=== PATIENT | female | born 1945 | race Caucasian/White ===

== ENCOUNTER 2017-01-10 09:25 | Emergency (ER) | payer MEDICARE, OTHER ==
[2017-01-10] MEDS ORDERED: HYDROcodone/Acetaminophen 7.5/325 mg Tablet ONE ×2 (09:51→10:17)
--- NOTE | 2017-01-10 10:23 | RAD ---
RIGHT SHOULDER HISTORY: Fell on shoulder with injury and pain. FINDINGS: Three views obtained. There is a fracture of the distal clavicle with slight displacement. The AC joint remains normally aligned. There is widening of the subacromial space, which indicates subluxation of the humeral head, in rela tion to the glenoid. IMPRESSION: 1. Fracture, distal clavicle. 2. Subluxation of the humeral head, in relation to the glenoid, with increase in the subacromial sp zoe. POS: H
--- NOTE | 2017-01-10 11:07 | CT ---
CT BRAIN WITHOUT CONTRAST: HISTORY: Fall. COMPARISON: CT brain from 2009. FINDINGS: No acute territorial infarct or hemorrhage. No midline shift or mass effect. Ventricular size and extraaxial CSF spaces are normal. Calvarium is intact. Paranasal sinuses and mastoids are clear. IMPRESSION: No acute intracranial abnormality. POS: RACHNA
== END 2017-01-10 11:50 | disposition home or self-care (01) ==
LOC: NAV ERS 09:25
DX: S42.031A Displaced fracture of lateral end of right clavicle, initial encounter for closed fracture (principal); S43.001A Unspecified subluxation of right shoulder joint, initial encounter; I10 Essential (primary) hypertension; E78.5 Hyperlipidemia, unspecified; Z79.01 Long term (current) use of anticoagulants; Z79.899 Other long term (current) drug therapy; W10.9XXA Fall (on) (from) unspecified stairs and steps, initial encounter; Y92.009 Unspecified place in unspecified non-institutional (private) residence as the place of occurrence of the external cause
CPT/HCPCS: 70450